=== PATIENT | female | born 1935 | race Caucasian/White ===

== ENCOUNTER 2017-05-13 11:56 | Emergency (ER) | payer MEDICAID ==
[~2017-05-13] VITALS: Ht 149.9 cm; Wt 51.5 kg
[2017-05-13 15:12] VITALS: BP 130/60
== END 2017-05-13 15:12 | disposition home or self-care (01) ==
LOC: ED 11:56
DX: H61.23 Impacted cerumen, bilateral (principal)

== ENCOUNTER 2019-05-11 13:32 | Inpatient (IN) | payer MEDICAID ==
[~2019-05-11] VITALS: Ht 144.8 cm; Wt 50.1 kg
[2019-05-11 14:13] VITALS: Ht 144.8 cm; Wt 50.1 kg
--- NOTE | 2019-05-11 14:25 | NUR ---
ON GURRICHARD IN POSITION OF COMFORT; WITH FAMILY AT BEDSIDE
[2019-05-11 14:32] LABS: CALCIUM 9.2 mg/dL (8.5-10.1); CARBON DIOXIDE 24.8 mmol/L (21-32); CHLORIDE SERUM 105 mmol/L (98-107); CREATININE SERUM 0.4 mg/dL (0.6-1.0); GLUCOSE SERUM 129 mg/dL (74-106); POTASSIUM SERUM 3.9 mmol/L (3.5-5.1); SODIUM SERUM 140 mmol/L (136-145)
[2019-05-11 14:34] LABS: BASOPHIL % 0.2 % (0-2); PLATELET COUNT 300 x10^3mcL (130-400)
[2019-05-11 14:38] LABS: RED CELL DISTRIBUTION WIDTH 16.8 % (11.5-14.5)
[2019-05-11 14:46] LABS: ALKALINE PHOSPHATASE 72 U/L (46-116); ALT/SGPT 17 U/L (14-59); AST/SGOT 11 U/L (15-37); BILIRUBIN TOTAL 0.5 mg/dL (0.20-1.00); CHOLESTEROL 161 mg/dL (<200); HDL CHOLESTEROL 49 mg/dL (40-60); LIPASE 86 IU/L (73-393); T4(THYROXINE) 8.3 ug/dL (4.7-13.3); TOTAL PROTEIN, SERUM 6.8 g/dL (6.4-8.2)
[2019-05-11 14:49] LABS: ALBUMIN 3.2 g/dL (3.4-5.0)
--- NOTE | 2019-05-11 15:18 | NUR ---
OBTAINED URINE FROM PT VIA STRAIGHT CATHETER. PROCEDURE EXPLAINED TO PT. PT TOLERATED WELL.
--- NOTE | 2019-05-11 15:30 | NUR ---
PT OFF FLOOR TAKEN FOR CT SCAN
--- NOTE | 2019-05-11 15:38 | NUR ---
PT IV ON LT FA INFILTRATED IN CT. NEW IV STARTED IN PT RT AC, 20GAUGE. IV FLUSHED WITH 10ML NS, NO REDNESS, SWELLING, OR PAIN NOTED.
[2019-05-11 15:48] LABS: UA SPECIFIC GRAVITY 1.025 (1.005-1.035); microscopic required? YES; urine erythrocyte NEGATIVE (NEGATIVE)
--- NOTE | 2019-05-11 16:46 | NUR ---
PT LAYING ON GURNEY IN POSITION OF COMFORT, AAOX4, RESP E/U, NO ACUTE DISTRESS NOTED AT THIS TIME. BED IN LOWEST POSITION, CALL LIGHT WITHIN REACH, PT DAUGHTER AT BEDSIDE.
--- NOTE | 2019-05-11 17:41 | NUR ---
DR. GUERRERO AT BEDSIDE TO DISCUSS PT PLAN OF CARE.
[2019-05-11] MEDS ORDERED: ZESTRIL5 MG (18:42)
--- NOTE | 2019-05-11 19:24 | NUR ---
RECIEVED REPORT FROM STEVE PHAM FOR FURTHER CARE OF PATIENT.
--- NOTE | 2019-05-11 19:29 | NUR ---
REPORT CALLED TO STEVE COYNE ON TELE FLOOR TO ASSUME CARE OF PT.
--- NOTE | 2019-05-11 19:45 | NUR ---
RECEIVED PT FROM ER VIA GURRICHARD ACCOMPANIED WITH NURSE, EMT AND PT'S DAUGHTER, PT SEEN, ALERT AND ORIENTED, DENIES HEADACHE OR DIZZINESS, KITTITIAN SPEAKING ONLY, DENIES HEADACHE OR DIZZINESS, NGT TO RT NARES, NGT CLAMP AT THIS TIME, SL TO RAC, PULSES PALPABLE, NO EDEMA NOTED, MILD GENERALIZED WEAKNESS, AMBULATORY WITH MINIMAL ASSIST, ABD DISTENDED BUT SOFT WITH HYPOACTIVE BS, NO BM AT THIS TIME, VOIDING FREELY, C/O OF BACK PAIN AT TIMES, DAUGHTER AT BEDSIDE, REPORT GIVEN TO PRIMARY NURSE-STANFORD FOR CONT NURSING CARE.
[2019-05-11 19:48] VITALS: BP 170/69
[2019-05-11 22:12] VITALS: BP 150/65
--- NOTE | 2019-05-11 22:12 | NUR ---
BP RECHECKED @ 150/65 MMHG,HR 75.NGT CONNECTED TO LIS.KUB RESULT SHOWS TIP IN THE STOMACH.DAUGHTER AT BEDSIDE.WILL CONTINUE TO MONITOR.
--- NOTE | 2019-05-12 04:41 | NUR ---
PT SLEPT WELL WITH DAUGHTER AT BEDSIDE.DENIES ANY PAIN SICNCE ADMISSION.NO N/V NOTED.NGT TO R NARES TO LIS TO FOOD CONTENT WATERY OUTPUT.ABDOMEN SOFT AND ROUND.HYPOACTIVE BOWEL SOUNDS.AMBULATES TO BR WITH ASSIST.ALL NEEDS MET.WILL CONTINUE TO MONITOR.
[2019-05-12] MEDS ORDERED: ZESTRIL20 MG PO (04:55)
[2019-05-12] MEDS ORDERED: EPZICOM1 TAB (04:55)
[2019-05-12 05:35] VITALS: BP 167/70
--- NOTE | 2019-05-12 06:36 | NUR ---
CALLED DR. PAREDES AND MADE AWARE OF BP TRENDS LAST NIGHT,LATEST BP 167/70 MMHG,HR 78.CONTINUE HOME MEDS LISINOPRIL 20 MG PO DAILY.NO PRN MEDS GIVEN AT THIS TIME.WILL CONTINUE TO MONITOR.
[2019-05-12 06:52] LABS: CALCIUM 8.4 mg/dL (8.5-10.1); CARBON DIOXIDE 25.3 mmol/L (21-32); CHLORIDE SERUM 106 mmol/L (98-107); CREATININE SERUM 0.4 mg/dL (0.6-1.0); GLUCOSE SERUM 129 mg/dL (74-106); POTASSIUM SERUM 3.6 mmol/L (3.5-5.1); SODIUM SERUM 139 mmol/L (136-145)
[2019-05-12 07:12] LABS: BASOPHIL % 0.2 % (0-2); PLATELET COUNT 273 x10^3mcL (130-400)
--- NOTE | 2019-05-12 07:17 | NUR ---
RECEIVED REPORT FROM STANFORD WILSON. PATIENT RESTING COMFORTABLY IN BED WITH FAMILY AT BEDSIDE. SALINE LOCK TO RAC IS PATENT AND INTACT. NO REDNESSS OR PAIN. NG TUBE TO RT NARIS WITH LOW INTERMITTENT SUCTION. MINIMAL DRAINAGE IN TANK. PT ON ROOM AIR. NO C/O SOB AND NO DISTRESS NOTED. TELE # [address] PT DENIES CHEST PAIN. ALL QUESTIONS AND CONCERNS ADDRESSED.
[2019-05-12 07:34] LABS: RED CELL DISTRIBUTION WIDTH 17.1 % (11.5-14.5)
--- NOTE | 2019-05-12 08:43 | NUR ---
IN TO SEE PATIENT AND ADMINISTER MEDICATION. SUCTION DISCONTINUED AND WILL BE REAPPLIED IN ONE HOUR TO ALLOW ABSORPTION OF MEDICATION. NG TUBE SECURED WITH TAPE. PATIENT RESTING COMFORTABLY IN BED WITH FAMILY AT BEDSIDE. ALL NEEDS MET.
--- NOTE | 2019-05-12 09:26 | NUR ---
PATIENT C/O NOSAL PAIN FROM NG TUBE. SPOKE WITH DR PAREDES TO CONTINUE NORCO. DR PAREDES OK.
[2019-05-12 09:32] VITALS: BP 154/63
--- NOTE | 2019-05-12 10:00 | NUR ---
IN TO ADMINISTER MEDICATION FOR BACK PAIN 04/07. RECHECKED BP 170/60. DR PAREDES NOTIFIED. NO ADDITIONAL ORDERS.
--- NOTE | 2019-05-12 12:36 | NUR ---
RECEIVED CALL FROM RADIOLOGY TO NOTIFY OF PICKUP. PATIENT HELPOCKED AND NG TUBE CLAMPED.
[2019-05-12 13:00] VITALS: BP 145/59
--- NOTE | 2019-05-12 16:16 | NUR ---
CALLED DR PAREDES WITH SBFT RESULTS. NO EVIDENCE OF COMPLETE BOWEL OBSTRUCTION. DR PAREDES OK.
[2019-05-12 17:57] VITALS: BP 143/53
--- NOTE | 2019-05-12 18:57 | NUR ---
PATIENT RESTING COMFORTABLY IN BED WITH FAMILY AT BEDSIDE. IV TO RAC IS PATENT AND INFUSING D5 1/2 NS W/30 MEQ KCL @ 83.33 ML/HR. NO REDNESS OR PAIN. TELE # [address] NO C/O CHEST PAIN. PT ON ROOM AIR. NO C/O SOB AND NO DISTRESS NOTED. NG TUBE TO RT NARIS IS ON LOW INTERMITTENT SUCTION WITH MINIMAL DRAINAGE NOTED IN TANK. WILL ENDORSE ALL CARE TO ONCOMING NURSE.
--- NOTE | 2019-05-12 20:02 | NUR ---
PT RECIEVED AAO WITH FAMILY THE BEDSIDE,REG RESP NO SOB V/S STABLE,ABDO IS SOFT WITH ACTIVE BOWEL SOUND WITH NGT TO RT NARES TO INTERMITTENT SUCTION,BED IN THE LOW POSITION AND LOCKED,MADE COMFORTABLE IN BED,IV INFFUSING WELL WITH THE SITE PATENT AND INTACT,HOB,BED IN THE LOW POSITION AND L;OCKED,CALL LIGGHT EASY REACHED AND WILL CONTINUE TO MONITOR.
[2019-05-12 21:35] VITALS: BP 142/47
--- NOTE | 2019-05-13 04:19 | NUR ---
PT WITH C/O OF H/A ARCHING IN NATURE AT THE SCALE OF 04/07,PT WAS MEDICATED WITH MORHINE 1 MG IV ORDER AND WILL CONTINUE TO MONITOR.
[2019-05-13 06:03] VITALS: BP 144/51
--- NOTE | 2019-05-13 06:34 | NUR ---
HODA HAD A RESTING NIGHT NO CHANGE AT THIS TIME,WILL CONTINUE TO MONITOR.
--- NOTE | 2019-05-13 07:25 | NUR ---
RECEIVED PT FROM ORDER DISPATCHER. PT AWAKE, ALERT A/OX4. PT COMPLAINS OF HEADACHE 03/07. WILL MEDICATE PRN. PT ON TELE 5, DENIES CHEST PAIN. PT ON ROOM AIR WITH NO RESP DISTRESS NOTED. LUNGS CTA. PT HAS NGT TO RIGHT NARES ON SUCTION. ACTIVE BOWEL SOUNDS NOTED. PT DENIES ABDOMNIAL PAIN. PERIPHERAL PULSES PALPABLE, NO EDEMA NOTED. IV ACEESS RAC C/D/I INFUSING D51/2NS WITH KCL AT 83.33ML/HR. PT NOTED TO HAVE MILD GENERALIZED WEAKNESS. FAMILY MEMBERS AT BEDSIDE. SAFETY MEASURES IN PLACE, BED LOW AND LOCKED. CALL LIGHT WITHIN REACH.
--- NOTE | 2019-05-13 08:30 | NUR ---
NG TUBE REMOVED ORDERED. PT TOLERATED WELL.
--- NOTE | 2019-05-13 08:50 | NUR ---
PT TAKEN OFF FLOOR FOR EGD, CHECKLIST AND CONSENT SIGNED. FAMILY AT BEDSIDE.
[2019-05-13 09:00] VITALS: BP 159/59
--- NOTE | 2019-05-13 10:15 | NUR ---
PT BACK FROM PROCEDURE, AWAKE AND ALERT WITH NO DISTRESS NOTED. VSS. BP 157/70 HR 74 O2 SAT 97% ON 1 1/2 L. FAMILY AT BEDSIDE.
--- NOTE | 2019-05-13 11:34 | NUR ---
PT LISINOPRIL ADMINISTERED AT THIS TIME. BP 157/70
--- NOTE | 2019-05-13 12:39 | NUR ---
PT NOTED WITH NAUSEA AND VOMITING. DUE DOSE OF REGLAN ADMINISTERED ORDERED. UNABLE TO GIVE OTHER MEDS AT THIS TIME. TB TEST ADMINISTERED AT THIS TIME TO LEFT FOREARM. SPOT MARKED FOR REFERENCE. FAMILY AT BEDSIDE. WILL ATTEMPT TO GIVE DUE MEDS AT A LATER TIME.
[2019-05-13 13:09] VITALS: BP 143/56
--- NOTE | 2019-05-13 13:37 | NUR ---
PT ABLE TO TAKE MEDS AT THIS TIME. NO NAUSEA OR VOMITING NOTED. PT ABLE TO EAT LUNCH, FAMILY AT BEDSIDE HELPING WITH CARE. SAFETY MAINTAINED.
--- NOTE | 2019-05-13 13:55 | NUR ---
Initial Nutrition Assessment: 219T/B CARLA PAINTING IA HR Dx: Partial small bowel obstruction PMHx: none PSHx: none Labs: BG 129H, CA 8.4L, CREAT 0.4L, ALB 3.2L Meds: Ativan, reglan, zestril Diet: Full liquid diet PO Intake: (05/13) 0% Ht: 144.78 cm (57") Wt: 50.1 kg (110#) BMI: 23.9 kg/m2 Bed scale: 109.4# IBW: 85# (39 kg) %IBW: 129 UBW: 115# Age: 83/F Food Allergies: NKFA Skin: intact Vikram: 19 Edema: none GI: partial distal SBO Last BM: 05/11 Per H&P, Pt is a 83 yo female no sign PMH c/o abd pain ongoing x 3 days. Pain persisting worsening of the symptoms. RDN Visit (05/13): Patient was sleeping and family member was at bedside. Per patient's RN, patient was NPO this morning for EGD, Patient's diet order has been changed to clear liquid which she will be receiving at lunch. Patient will be receiving ensure clear with clear liquid diet order. Problem with: N/V/D/C: none Problems with: Chewing/Swallowing: some irritation in throat Current appetite: poor Recent wt change: lost 5# x 1.5 month %wt change: 4.8 Vitamin/Supplement use: omega 3 - 6 months ago Special diet at home: regular Physical activity: walking, diesel locomotive engineer Nutrition education given: patient's family did not have any diet related questions at this time. Food-drug interactions: Ativan- limit caffeine to <400-500 mg/day Education given: no Estimated Nutritional Needs Based on body weight 50.1 kg Energy: 5050-7548 kcal/d (25-30 kcal/kg) Protein: 50-60 g/d (1.0-1.2 g/kg)- Fluid: 0580-9957 ml/d (1 ml/kcal) or per doctor Nutrition Diagnosis 1. Inadequate oral intake related to partial SBO as evidenced by NPO and clear liquid diet orders. Intervention 1. Recommend continuing clear liquid diet. 2. Progress to full liquid diet when medically appropriate/tolerated. Monitor/Evaluate Goal: PO intake at least 75% of estimated needs Monitor: PO intake, Labs, GI function F/U in 2-3 days as high risk 05/15-
--- NOTE | 2019-05-13 13:55 | NUR ---
1. Recommend continuing clear liquid diet. 2. Progress to full liquid diet when medically appropriate/tolerated.
[2019-05-13 17:59] VITALS: BP 122/50
--- NOTE | 2019-05-13 19:07 | NUR ---
PT STABLE AT THIS TIME. WILL CONTINUE TO MONITOR AND ENDORSE TO BOBBIN WASHER. RAC IV INFILTRATED. IV REMOVED WITH CATHETER INTACT. NEW IV STARTED TO RFA 24G. PT TOLERATED WELL.
--- NOTE | 2019-05-13 19:56 | NUR ---
PT RECIEVED AAO WITH DAUGTHER AT THE BEDSIDE,IV INFUSING WELL WITH THE SITE PATENT ND INTACT,ABDO IS SOFT WITH ACTIVE BOWEL SOUNDS,KEPT CLEAN AND DRY TO TOUCH,BED IN THE LOW POSITION AND LOCKED,PT HAVING LOOSE STOOLS STILL NO CLEAR AT THIS TIME,BED IN THE LOW POSITION AND LOCKED,BED IN THE LOW POSITION AND LOCKED AND WILL CONTINUE TO MONITOR.
--- NOTE | 2019-05-13 20:20 | NUR ---
CONSENT WAS PREPARED AND PATTHER WAS IN THE ROOM AND SIGN THE CONSENT FOR COLONOSCOPY FOR AM,PT RESTING AT THIS TIME AND WILL CONTINUE TO MONITOR.
[2019-05-13 21:42] VITALS: BP 149/51
--- NOTE | 2019-05-13 23:18 | NUR ---
PT HAD A RESTING NIGHT NO CHNGE AT THIS TIME,WILL CONTINUE TO MONITOR.
[2019-05-14 05:57] VITALS: BP 138/45
--- NOTE | 2019-05-14 06:03 | NUR ---
PT IS CLEAR AT THIS TI AND NPO WILL CONTINUE TO MONITOR.
--- NOTE | 2019-05-14 06:21 | NUR ---
PT HAD A RESTING NIGHT NO CHANGE AT THIS TIME AND WILL CONTINUE TO MONITOR.
--- NOTE | 2019-05-14 07:39 | NUR ---
HANDOFF REPORT RECEIVED. PATIENT CLEANING UP IN BATHROOM ON ROUNDS WITH DAUGHTER BERNICE ASSISTING. DENIES ANY DISCOMFORT NPO MAINTAINED. GI LAB RNS HERE FOR TRANSPORT.
--- NOTE | 2019-05-14 10:02 | NUR ---
POST COLONOSCOPY AND BIOPSY REPORT RECEIVED FROM STEVE RIZO.
--- NOTE | 2019-05-14 10:11 | NUR ---
BACK TO FLOOR S/P COLONOSCOPY WITH BIOPSY. ALERT ORIENTEDX3. BROWN. DENIES ANY DISCOMFORT AT THIS TIME. SEE VITAL SIGNS. TO RESUME DIET. DAUGHTER AT BEDSIDE.
[2019-05-14 10:38] VITALS: BP 148/51
[2019-05-14 11:56] VITALS: BP 134/52
--- NOTE | 2019-05-14 13:48 | NUR ---
TOLERATED MECHANICAL SOFT CHOPPED. NO NAUSEA.
--- NOTE | 2019-05-14 17:09 | NUR ---
[facility]ITA MEMBERS VISITING. NO OCMPLAINTS AT THIS TIME.
[2019-05-14 17:12] VITALS: BP 117/32
--- NOTE | 2019-05-14 19:08 | NUR ---
HANDOFF REPORT GIVEN TO STEVE SEARS.
--- NOTE | 2019-05-14 19:26 | NUR ---
PT RECIEVED AAO REG RESP NO SOB V/S STABLE KEPT CLEAN AND DRY TO OUCH,FAMILY AT THE BEDSIDE,HL TO THE LT HAND WITH THE SITE PATENT AND INTACT,KEPT CLEAN AND DRY TO TOUCH,NO PAIN REPORTED AT THIS TIME,CALL LIGHT EASY REACHED AND WILL ONTINUE TO MONITOR.
[2019-05-14 21:08] VITALS: BP 130/41
--- NOTE | 2019-05-14 23:39 | NUR ---
PT RESTING AT THIS TIME,WILL CONTINUE TO MONITOR.
[2019-05-15 05:32] VITALS: BP 123/66
--- NOTE | 2019-05-15 06:46 | NUR ---
PT HAD A RESTING NIGHT NO CHANGE AT THIS TIME,WILL CONTINUE TO MONITOR.
--- NOTE | 2019-05-15 07:26 | NUR ---
RECEIVED HAND OFF REPORT FROM [facility] NURSE. PATIENT SITTING UP IN BED WITH FAMILY. NO COMPLAINTS, ASKING ABOUT DISCHARGE FOR TODAY. CALL LIGHTW ITHIN REACH. WILL CONTINUE TO MONITOR
--- NOTE | 2019-05-15 09:00 | NUR ---
PATIENT RESTING COMFORTABLY AT THIS TIME. NO COMPLAINTS
[2019-05-15 09:03] VITALS: BP 145/54
--- NOTE | 2019-05-15 09:51 | NUR ---
AFTER 15 MINUTES, NO ADVERSE REACTIONS NOTED. DENIES SHORTNESS OF BREATH. VSS. CALL IGHT WITHIN REACH, AT BEDSIDE. WILL CONTINUE TO MONITOR
[2019-05-15 11:01] VITALS: BP 154/54
[2019-05-15 11:08] VITALS: BP 154/54
--- NOTE | 2019-05-15 11:54 | NUR ---
PATIENT TO BE DISCHARGED BY DR PAREDES. PROVIDED PATIENT AND FAMILY WITH DISCHARGE INSTRUCTIONS, PRESCRIPTIONS AND INFORMED OF FOLLOW UP APPOINTMENT. QUESTIONS ADDRESSED. IV TO RIGHT FORARM REMOVED WITH CATH IN TACT. TELE MONITOR 5 REMOVED AND TAKEN BACK TO DEBRA IN TELE ROOM. PATIENT AND FAMILY ASSISTED OFF UNIT WITH ALL BELONGINGS
== END 2019-05-15 12:00 | disposition home or self-care (01) | DRG 249 ==
LOC: ED 13:32 → DU 17:48
PROVIDERS: Emergency Medicine; Internal Medicine Gastroenterology; ADMIT Internal Medicine
PROC: 3E0G8GC Introduction of Other Therapeutic Substance into Upper GI, Via Natural or Artificial Opening Endoscopic (ICD-10-PCS; 2019-05-13)
PROC: 0DB68ZX Excision of Stomach, Via Natural or Artificial Opening Endoscopic, Diagnostic (ICD-10-PCS; principal; 2019-05-13 09:00)
PROC: 0DBB8ZX Excision of Ileum, Via Natural or Artificial Opening Endoscopic, Diagnostic (ICD-10-PCS; 2019-05-14)
PROC: 0DBN8ZX Excision of Sigmoid Colon, Via Natural or Artificial Opening Endoscopic, Diagnostic (ICD-10-PCS; 2019-05-14)
DX: K52.9 Noninfective gastroenteritis and colitis, unspecified (principal); K56.600 Partial intestinal obstruction, unspecified as to cause; K63.3 Ulcer of intestine; E86.0 Dehydration; K31.89 Other diseases of stomach and duodenum; K64.8 Other hemorrhoids; I10 Essential (primary) hypertension; G89.29 Other chronic pain; Z68.26 Body mass index [BMI] 26.0-26.9, adult; Z85.42 Personal history of malignant neoplasm of other parts of uterus
CPT/HCPCS: 43235; 45378; 83880; 86480; 86580; 88344; A9698; G0378; J1200; J1610; J2250; J2270; J2310; J2405; J2765; J3010; J3480; J3490; Q0092; Q9967

== ENCOUNTER 2019-11-14 18:53 | Emergency (ER) | payer OTHER ==
[~2019-11-14] VITALS: Ht 132.1 cm; Wt 51.7 kg
[~2019-11-14 18:53] MED LIST: EPZICOM1 TAB; ZESTRIL20 MG PO; ZESTRIL5 MG
[2019-11-14 18:57] VITALS: BP 151/103; Ht 132.1 cm; Wt 51.7 kg
== END 2019-11-14 20:41 | disposition home or self-care (01) ==
LOC: ED 18:53
DX: H61.23 Impacted cerumen, bilateral (principal); I10 Essential (primary) hypertension; G89.29 Other chronic pain; Z98.890 Other specified postprocedural states; Z88.2 Allergy status to sulfonamides